=== PATIENT | female | born 2000 | race Two or more races ===

== ENCOUNTER 2024-03-27 19:09 | Emergency (ER) | payer MEDICAID ==
[~2024-03-27] VITALS: Ht 157.5 cm; Wt 78.0 kg
[2024-03-27 20:27] VITALS: BP 135/77; PULSE 114; RESP 18; TEMP 98.9; O2SAT 96
[2024-03-27] MEDS ORDERED: ZOFR4T PO (20:44)
[2024-03-27] MEDS: ONDANSETRON ODT 4 MG TAB PO ONE (20:53)
[2024-03-27 21:17] LABS: Urine Bacteria FEW /hpf (None Seen); Urine Blood Negative /uL (Negative); Urine Clarity Clear (Clear); Urine Color Yellow (Yellow); Urine Mucus FEW (None Seen); Urine Protein, UAD 1+ (Negative); Urine Urobilinogen Normal (Negative); Urine WBC 4 /hpf (0 - 5)
[2024-03-27 21:46] LABS: Amphetamine Screen, Urine Pos (NEGATIVE); Barbiturate Scree,Urine Neg (NEGATIVE); Benzodiazephine Screen, Urine Neg (NEGATIVE); Cannabinoid Screen, Urine Pos (NEGATIVE); Cocaine Screen, Urine Pos (NEGATIVE); Opiate Scree,Urine Neg (NEGATIVE); Phencyclidine Screen, Urine Neg (NEGATIVE)
== END 2024-03-27 21:27 | disposition home or self-care (01) ==
LOC: ER 19:09
DX: F16.10 Hallucinogen abuse, uncomplicated (principal)
CPT/HCPCS: 80307; 81001; 99283; Q0162

== ENCOUNTER 2024-07-21 13:40 | Emergency (ER) | payer MEDICAID ==
[~2024-07-21] VITALS: Ht 157.5 cm; Wt 84.0 kg
[~2024-07-21 13:40] MED LIST: ZOFR4T PO
[2024-07-21 14:03] VITALS: BP 149/87; PULSE 108; RESP 16; TEMP 98.1; O2SAT 96
[2024-07-21] MEDS ORDERED: diphenhdrAMINE HCL 50 MG/1 ML VL IM ONE (14:30)
[2024-07-21] MEDS ORDERED: DIPH25CA66 PO (14:41)
== END 2024-07-21 14:42 | disposition home or self-care (01) ==
LOC: ER 13:44
DX: G25.9 Extrapyramidal and movement disorder, unspecified (principal); F41.9 Anxiety disorder, unspecified; F32.9 Major depressive disorder, single episode, unspecified
CPT/HCPCS: 99282; J1200

== ENCOUNTER 2024-12-09 16:20 | Emergency (ER) | payer MEDICAID ==
[~2024-12-09] VITALS: Ht 175.3 cm; Wt 72.7 kg
[~2024-12-09 16:20] MED LIST changes: +DIPH25CA66 PO
[2024-12-09 17:06] VITALS: BP 116/78; PULSE 102; RESP 16; TEMP 98.7; O2SAT 96
== END 2024-12-09 20:20 | disposition left against medical advice (07) ==
LOC: ER 16:20 → EDBD 16:20 → ER 20:20
DX: H57.10 Ocular pain, unspecified eye (principal); Z53.21 Procedure and treatment not carried out due to patient leaving prior to being seen by health care provider

== ENCOUNTER 2024-12-30 14:42 | Emergency (ER) | payer MEDICAID ==
[~2024-12-30] VITALS: Ht 167.6 cm; Wt 77.2 kg
--- NOTE | 2024-12-30 15:42 | ED.PDOC ---
History of Present Illness HPI Comments 24F presents to the ER via EMS w/ prior Hx associated to the c/c of mental health. Pt reports that she needs to ""sleep" and that she lives at home with her mother and father. Pt notes that she does not have a psychiatrist that follows her and that she is anxious and shaking. Denies chills, fever, N/'V/D, SOB, CP or no other associated symptoms, modifiers, recent injuries or sick contacts at this time. Patient is in the middle of a psychotic event. Patient states she has been placed at mental health facilities on multiple occasions over the past few years. Chief Complaint: Mental Health Time Seen by MD: 15:25 Primary Care Provider: unknown Reviewed Notes: Nurses Notes, Cage Supervisor Notes, Medications, Allergies Allergies: Coded Allergies: NO KNOWN ALLERGIES (Unverified , 03/27/24) Home Meds Active Scripts Diphenhydramine Hcl (Benadryl Allergy) 25 Mg Cap, 50 MG PO BID, #20 CAP Prov:MARIANA STROUD PA 07/21/24 Ondansetron Odt 4MG Tab (ZOFRAN PO) 4 Mg Tb, 4 MG PO Q6HPRN PRN, #10 TAB ODT TAB-DISSOLVE IN MOUTH, THEN SWALLOW Prov:RASHAAD LEE PAC 03/27/24 Information Source: Patient, Emergency Med Personnel Mode of Arrival: Ambulatory Severity: Moderate Timing: Minutes Duration: Since onset, Minutes Prehospital treatment: None Past Medical History PAST MEDICAL HISTORY: Anxiety, Depression Past Medical History (Other): Unknown psychosis. 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 Surgical History: Denies all surgeries ANGLESMITH History: No Pertinent ANGLESMITH History Family History Family History: Reviewed,noncontributory to illness, Unknown Social History Smoker: Non-Smoker Alcohol: Denies ETOH Use Drugs: Denies Drug Use Lives In: Home Constitutional: reports: weakness; denies: chills, diaphoresis, fatigue, fever, malaise, sweats, others EENTM: denies: blurred vision, double vision, ear bleeding, ear discharge, ear drainage, ear pain, ear ringing, eye pain, eye redness, hearing loss, mouth pain, mouth swelling, nasal discharge, nose bleeding, nose congestion, nose pain, photophobia, tearing, throat pain, throat swelling, voice changes, others Respiratory: denies: cough, hemoptysis, orthopnea, SOB at rest, shortness of breath, SOB with excertion, stridor, wheezing, others Cardiovascular: denies: chest pain, dizzy spells, diaphoresis, Dyspnea on exertion, edema, irregular heart beat, left arm pain, lightheadedness, palpitations, PND, syncope, others Gastrointestinal: denies: abdomen distended, abdominal pain, blood streaked bowels, constipated, diarrhea, dysphagia, difficulty swallowing, hematemesis, melena, nausea, poor appetite, poor fluid intake, rectal bleeding, rectal pain, vomiting, others Genitourinary: denies: abnormal vagina bleeding, burning, dyspareunia, dysuria, flank pain, frequency, hematuria, incontinence, pain, , vagina discharge, urgency, others Neurological: denies: dizziness, fainting, headache, left sided numbness, left sided weakness, numbness, paresthesia, pre-existing deficit, right sided numbness, right sided weakness, seizure, speech problems, tingling, tremors, weakness, others Musculoskeletal: denies: back pain, gout, joint pain, joint swelling, muscle pain, muscle stiffness, neck pain, others Integumetry: denies: bruises, change in color, change in hair/nails, dryness, laceration, lesions, lumps, rash, wounds, others Allergic/Immunocompromised: denies: Difficulty Healing, Frequent Infections, Hives, Itching, others Hematologic/Lymphatic: denies: anemia, blood clots, easy bleeding, easy bruising, swollen glands, others Endocrine: denies: excessive hunger, excessive sweating, excessive thirst, excessive urination, flushing, intolerance to cold, intolerance to heat, unexplained weight gain, unexplained weight loss, others Psychiatric: reports: anxiety; denies: bipolar disorder, depression, hopeless, panic disorder, schizophrenia, sleepless, suicidal, others Unable to Obtain due to: Altered Mental Status (Due to psychotic state) All Other Systems: Reviewed and Negative Physical Exam General Appearance: Moderate Distress (Patient was slow in response and shaking at time of evaluation. Patient understood the questions and did respond. Patient stated a history of psychiatric placement.), Normal HEENT: Normal ENT Inspection, Pharynx Normal, TMs Normal Neck: Full Range of Motion, Non-Tender, Normal, Normal Inspection Respiratory: Chest Non-Tender, Lungs Clear, No Accessory Muscle Use, No Respiratory Distress, Normal Breath Sounds Cardiovascular: No Edema, No JVD, No Murmur, No Gallop, Normal Peripheral Pulses, Regular Rate/Rhythm Breast Exam: Deferred Gastrointestinal: No Organomegaly, Non Tender, No Pulsatile Mass, Normal Bowel Sounds, Soft Genitalia: Deferred Pelvic: Deferred Rectal: Deferred Extremities: NOT DONE Musculoskeletal : Apperance: Normal Neurologic: NOT DONE Cerebellar Function: NOT DONE Reflexes: NOT DONE Skin: Dry, Normal Color, Warm Lymphatic: No Adenopathy Was a procedure done? Was a procedure done?: No Differential Dx Considerations may include: Psychosis, bipolar schizophrenic, sepsis, electrolyte abnormality, UTI, drug abuse, alcoholism X-Ray, Labs, Meds, VS Vital Signs Date Time Temp Pulse Resp B/P (MAP) Pulse Ox O2 Delivery O2 Flow Rate FiO2 12/30/24 22:00 98.5 12/30/24 20:55 99.1 12/30/24 19:40 113 15 97 Room Air* 0 21 12/30/24 19:40 98.9 113 15 117/80 (92) 97 98.9 12/30/24 17:00 98.4 125 15 125/84 (98) 95 98.4 12/30/24 17:00 125 15 95 Room Air* 0 21 12/30/24 14:53 99.1 103 18 126/81 (96) 98 99.1 Lab Test 12/30/24 18:10 12/30/24 17:19 Range/Units Urine Color Light-orange Yellow Urine Clarity Turbid H Clear Urine pH 6.0 5.0-9.0 Urine Specific [place] 1.022 1.001-1.035 Urine Protein Trace H Negative Urine Ketones 1+ H Negative Urine Blood Negative Negative /uL Urine Nitrite 2+ H Negative Urine Bilirubin Negative Negative Urine Urobilinogen Normal Negative mg/dL Urine Leukocyte Esterase 3+ Negative /uL Urine RBC 5 0 - 4 /hpf Urine Microscopic WBC 41 H 0-5 /HPF Urine Squamous Epithelial Cells Few <5 /hpf Urine Bacteria None seen None Seen /hpf Urine Mucus Moderate None Seen Urine Glucose Normal Normal mg/dL Urine Test Negative Negative Urine Opiates Screen Neg NEGATIVE Urine Fentanyl Screen Neg NEGATIVE Urine Barbiturates Screen Neg NEGATIVE Urine Phencyclidine Screen Neg NEGATIVE Urine Amphetamines Screen Neg NEGATIVE Urine Benzodiazepines Screen Neg NEGATIVE Urine Cocaine Screen Neg NEGATIVE Urine Cannabinoids Screen Neg NEGATIVE White Blood Count 9.2 4.4-10.8 10^3/uL Red Blood Count 4.46 4.0-5.20 10^6/uL Hemoglobin 13.7 12.2-16.2 g/dL Hematocrit 40.4 36.0-46.0 % Mean Corpuscular Volume 90.5 80.0-100.0 fL Mean Corpuscular Hemoglobin 30.7 28.0-32.0 pg Mean Corpuscular Hemoglobin Concent 33.9 32.0-36.0 g/dL Red Cell Distribution Width 13.4 11.8-14.3 % Platelet Count 233 140-450 10^3/uL Mean Platelet Volume 9.7 6.9-10.8 fL Neutrophils (%) (Auto) 71.7 37.0-80.0 % Lymphocytes (%) (Auto) 20.6 10.0-50.0 % Monocytes (%) (Auto) 6.8 0.0-12.0 % Eosinophils (%) (Auto) 0.6 0.0-7.0 % Basophils (%) (Auto) 0.3 0.0-2.0 % Neutrophils # (Auto) 6.6 1.6-8.6 10 ^3/uL Lymphocytes # (Auto) 1.9 0.4-5.4 10 ^3/uL Monocytes # (Auto) 0.6 0-1.3 10 ^3/uL Eosinophils # (Auto) 0.1 0-0.8 10 ^3/uL Basophils # (Auto) 0 0-0.2 10 ^3/uL Nucleated Red Blood Cells 0.0 % Sodium Level 139 136-145 mmol/L Potassium Level 3.7 3.5-5.1 mmol/L Chloride Level 103 98-107 mmol/L Carbon Dioxide Level 26 20-31 mmol/L Anion Gap 10 5-15 Blood Urea Nitrogen 10 9-23 mg/dL Creatinine 0.78 0.550-1.02 mg/dL Glomerular Filtration Rate Calc 108 >90 mL/min BUN/Creatinine Ratio 12.8 10.0-20.0 Serum Glucose 123 H 74-106 mg/dL Calcium Level 10.7 H 8.7-10.4 mg/dL Lipase 36 12-53 U/L Salicylates Level < 3.0 -30 mg/dL Plasma/Serum Blood Alcohol < 3.0 <10 mg/dL Current Medications Medications (Trade) Dose Ordered Sig/Gerald Route Start Time Stop Time Status Last Admin Lorazepam (Ativan Inj) 1 mg ONCE ONCE IM 12/30/24 15:30 12/30/24 15:31 DC 12/30/24 16:53 Sodium Chloride 2,000 ml @ 1,000 mls/hr Q2H ONCE IV 12/30/24 20:00 12/30/24 21:59 DC 12/30/24 20:56 Nitrofurantoin Macrocrystals (Macrobid) 100 mg ONCE ONCE PO 12/30/24 20:00 12/30/24 20:01 DC 12/30/24 20:55 Acetaminophen (Tylenol Tablet Or Capsule) 1,000 mg ONCE ONCE PO 12/30/24 20:00 12/30/24 20:01 DC 12/30/24 20:55 Alprazolam (Xanax Tablet) 1 mg ONCE ONCE PO 12/30/24 20:30 12/30/24 20:31 DC 12/30/24 20:55 X-Ray, Labs, Meds, VS Comment All studies performed the ED were evaluated by me personally. Serum studies were unremarkable for any acute process. Urinalysis confirmed a large urinary tract infection. Patient was very agitated throughout her stay of the facility. Patient required multiple rounds of Ativan to maintain a safe environment. Patient has been medically cleared for psychiatric evaluation. Patient should be placed in a longer-term facility to manage her medication. Time of 1ST Reevaluation: 01:34 Reevaluation 1ST: Improved Consultation: PCP, Psychiatry Patient Education/Counseling: Diagnosis, Treatment, Prognosis Family Education/Counseling: Diagnosis, Treatment, No Family Present Departure 1 Departure Time of Disposition: 01:34 Impression: Primary Impression: Psychosis Disposition: 30 STILL A PATIENT Condition: Poor Discharged With: Self Critical Care Note Critical Care Time?: No Stability Stability form required: No Heart Score Heart Score: Heart Score Response (Comments) Value History N/A 0 EKG N/A 0 Age N/A 0 Risk Factors N/A 0 Troponin N/A 0 Total 0 I personally scribed for LEANNA LARSEN PAC ([email or web address]) on 12/30/24 at 15:42. Electronically submitted by Michi Astudillo ([email or web address]). LEANNA LARSEN PAC Dec 30, 2024 15:42
[2024-12-30] MEDS: LORazepam 2MG/ML-1ML VIAL IM ONE (16:53)
[2024-12-30 17:00] VITALS: PULSE 125; RESP 15; O2SAT 95
[2024-12-30 18:09] LABS: Basophils # (auto) 0 10 ^3/uL (0-0.2); Basophils % (auto) 0.3 % (0.0-2.0); Eosinophils # (auto) 0.1 10 ^3/uL (0-0.8); Eosinophils % (auto) 0.6 % (0.0-7.0); Hematocrit 40.4 % (36.0-46.0); Hemoglobin 13.7 g/dL (12.2-16.2); Lymphocytes # (auto) 1.9 10 ^3/uL (0.4-5.4); Lymphocytes % (auto) 20.6 % (10.0-50.0); Mean Corpuscular Hemoglobin 30.7 pg (28.0-32.0); Mean Corpuscular Hgb Conc. 33.9 g/dL (32.0-36.0); Mean Corpuscular Volume 90.5 fL (80.0-100.0); Monocytes # (auto) 0.6 10 ^3/uL (0-1.3); Monocytes % (auto) 6.8 % (0.0-12.0); Neutrophils # (auto) 6.6 10 ^3/uL (1.6-8.6); Neutrophils % (auto) 71.7 % (37.0-80.0); Platelet Count (auto) 233 10^3/uL (140-450); Red Blood Cells 4.46 10^6/uL (4.0-5.20); Red Cell Distribution Width 13.4 % (11.8-14.3); White Blood Cell 9.2 10^3/uL (4.4-10.8)
[2024-12-30 18:11] LABS: Urine Bacteria None Seen /hpf (None Seen)
[2024-12-30 18:15] LABS: Anion Gap 10 (5-15); Carbon Dioxide 26 mmol/L (20-31); Chloride 103 mmol/L (98-107); Potassium 3.7 mmol/L (3.5-5.1); Sodium 139 mmol/L (136-145)
[2024-12-30 18:21] LABS: BUN/Creatinine Ratio 12.8 (10.0-20.0); Blood Urea Nitrogen 10 mg/dL (9-23)
[2024-12-30 18:31] LABS: Blood Alcohol < 3.0 mg/dL (<10); Calcium 10.7 mg/dL (8.7-10.4); Glucose 123 mg/dL (74-106)
[2024-12-30 18:37] LABS: Benzodiazephine Screen, Urine Neg (NEGATIVE)
[2024-12-30 18:38] LABS: Cannabinoid Screen, Urine Neg (NEGATIVE)
[2024-12-30 18:39] LABS: Amphetamine Screen, Urine Neg (NEGATIVE); Barbiturate Scree,Urine Neg (NEGATIVE); Cocaine Screen, Urine Neg (NEGATIVE); Opiate Scree,Urine Neg (NEGATIVE); Phencyclidine Screen, Urine Neg (NEGATIVE)
[2024-12-30 18:42] LABS: Urine Blood Negative /uL (Negative); Urine Clarity Turbid (Clear); Urine Color Light-Orange (Yellow); Urine Mucus MODERATE (None Seen); Urine Protein, UAD TRACE (Negative); Urine Specific Gravity 1.022 (1.001-1.035); Urine Squamous Epithelial Cell FEW /hpf (<5); Urine Urobilinogen Normal (Negative); Urine WBC 41 /HPF (0-5)
[2024-12-30 19:40] VITALS: PULSE 113; RESP 15; O2SAT 97
[2024-12-30 19:58] LABS: Lipase 36 U/L (12-53)
[2024-12-30] MEDS: ALPRAZolam 0.5 MG TAB PO ONE (20:55)
[2024-12-30] MEDS: ACETAMINOPHEN 500 MG TAB or CAP PO ONE (20:55)
[2024-12-30] MEDS: NITROFURANTOIN 100 mg CAP PO ONE (20:55)
[2024-12-30] MEDS: SODIUM CHLORIDE 0.9% 2,000 ML IV ONE (20:56)
[2024-12-31] MEDS: ACETAMINOPHEN 325 MG TAB PO ONE (01:50)
[2024-12-31] MEDS: LORazepam 0.5 MG TAB PO ONE (01:51)
[2024-12-31] MEDS: NITROFURANTOIN 100 mg CAP PO ONE (01:52)
--- NOTE | 2024-12-31 09:04 | ED.PDOC ---
History of Present Illness HPI Comments 24 year old female presents to the ED via EMS with a chief complaint of ALOC onset today. Patient was seen at [facility], yesterday, decided to leave. Patient was laying down outside a store, 911 was called by bystanders. Upon ED arrival, patient refused to answer questions. PMHx anxiety, depression. Chief Complaint: Mental Health Time Seen by MD: 08:46 Primary Care Provider: unknown Reviewed Notes: Medications, Allergies Allergies: Coded Allergies: NO KNOWN ALLERGIES (Unverified , 03/27/24) Home Meds Active Scripts Diphenhydramine Hcl (Benadryl Allergy) 25 Mg Cap, 50 MG PO BID, #20 CAP Prov:MARIANA STROUD 07/21/24 Ondansetron Odt 4MG Tab (ZOFRAN PO) 4 Mg Tb, 4 MG PO Q6HPRN PRN, #10 TAB ODT TAB-DISSOLVE IN MOUTH, THEN SWALLOW Prov:RASHAAD LEE 03/27/24 Information Source: Emergency Med Personnel Mode of Arrival: Ambulatory Severity: Moderate Timing: Hours Duration: Since onset Prehospital treatment: None Past Medical History PAST MEDICAL HISTORY: Anxiety, Depression Past Medical History (Other): Unknown psychosis. 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 Surgical History: Denies all surgeries TALENT ACQUISITION PROJECT MANAGER History: No Pertinent TALENT ACQUISITION PROJECT MANAGER History Family History Family History: Reviewed,noncontributory to illness, Unknown Social History Smoker: Non-Smoker Alcohol: Denies ETOH Use Drugs: Denies Drug Use Lives In: Home Unable to Obtain due to: Altered Mental Status Physical Exam General Appearance: Moderate Distress, Normal HEENT: Normal ENT Inspection, Pharynx Normal, TMs Normal Neck: Full Range of Motion, Non-Tender, Normal, Normal Inspection Respiratory: Chest Non-Tender, Lungs Clear, No Accessory Muscle Use, No Respiratory Distress, Normal Breath Sounds Cardiovascular: No Edema, No JVD, No Murmur, No Gallop, Normal Peripheral Pulses, Regular Rate/Rhythm Breast Exam: Deferred Gastrointestinal: No Organomegaly, Non Tender, No Pulsatile Mass, Normal Bowel Sounds, Soft Genitalia: Deferred Pelvic: Deferred Rectal: Deferred Extremities: No calf tenderness, Normal capillary refill, Normal inspection, Normal range of motion, Non-tender, No pedal edema Musculoskeletal : Apperance: Normal Neurologic: Alert, dairy clerk II-XII nml as Tested, No Motor Deficits, Normal Affect, Normal Mood, No Sensory Deficits Cerebellar Function: NOT DONE Reflexes: NOT DONE Skin: Dry, Normal Color, Warm Peripheral Pulses: 3+ Radial (R), 3+ Radial (L) Lymphatic: No Adenopathy Was a procedure done? Was a procedure done?: No Differential Dx Considerations may include: Psychosis Electrolyte imbalance X-Ray, Labs, Meds, VS Vital Signs Date Time Temp Pulse Resp B/P (MAP) Pulse Ox O2 Delivery O2 Flow Rate FiO2 12/31/24 02:50 98.0 12/31/24 01:50 98.1 12/30/24 22:00 98.5 12/30/24 20:55 99.1 12/30/24 19:40 113 15 97 Room Air* 0 21 12/30/24 19:40 98.9 113 15 117/80 (92) 97 98.9 12/30/24 17:00 98.4 125 15 125/84 (98) 95 98.4 12/30/24 17:00 125 15 95 Room Air* 0 21 12/30/24 14:53 99.1 103 18 126/81 (96) 98 99.1 Lab Test 12/30/24 18:10 12/30/24 17:19 Range/Units Urine Color Light-orange Yellow Urine Clarity Turbid H Clear Urine pH 6.0 5.0-9.0 Urine Specific [place] 1.022 1.001-1.035 Urine Protein Trace H Negative Urine Ketones 1+ H Negative Urine Blood Negative Negative /uL Urine Nitrite 2+ H Negative Urine Bilirubin Negative Negative Urine Urobilinogen Normal Negative mg/dL Urine Leukocyte Esterase 3+ Negative /uL Urine RBC 5 0 - 4 /hpf Urine Microscopic WBC 41 H 0-5 /HPF Urine Squamous Epithelial Cells Few <5 /hpf Urine Bacteria None seen None Seen /hpf Urine Mucus Moderate None Seen Urine Glucose Normal Normal mg/dL Urine Test Negative Negative Urine Opiates Screen Neg NEGATIVE Urine Fentanyl Screen Neg NEGATIVE Urine Barbiturates Screen Neg NEGATIVE Urine Phencyclidine Screen Neg NEGATIVE Urine Amphetamines Screen Neg NEGATIVE Urine Benzodiazepines Screen Neg NEGATIVE Urine Cocaine Screen Neg NEGATIVE Urine Cannabinoids Screen Neg NEGATIVE White Blood Count 9.2 4.4-10.8 10^3/uL Red Blood Count 4.46 4.0-5.20 10^6/uL Hemoglobin 13.7 12.2-16.2 g/dL Hematocrit 40.4 36.0-46.0 % Mean Corpuscular Volume 90.5 80.0-100.0 fL Mean Corpuscular Hemoglobin 30.7 28.0-32.0 pg Mean Corpuscular Hemoglobin Concent 33.9 32.0-36.0 g/dL Red Cell Distribution Width 13.4 11.8-14.3 % Platelet Count 233 140-450 10^3/uL Mean Platelet Volume 9.7 6.9-10.8 fL Neutrophils (%) (Auto) 71.7 37.0-80.0 % Lymphocytes (%) (Auto) 20.6 10.0-50.0 % Monocytes (%) (Auto) 6.8 0.0-12.0 % Eosinophils (%) (Auto) 0.6 0.0-7.0 % Basophils (%) (Auto) 0.3 0.0-2.0 % Neutrophils # (Auto) 6.6 1.6-8.6 10 ^3/uL Lymphocytes # (Auto) 1.9 0.4-5.4 10 ^3/uL Monocytes # (Auto) 0.6 0-1.3 10 ^3/uL Eosinophils # (Auto) 0.1 0-0.8 10 ^3/uL Basophils # (Auto) 0 0-0.2 10 ^3/uL Nucleated Red Blood Cells 0.0 % Sodium Level 139 136-145 mmol/L Potassium Level 3.7 3.5-5.1 mmol/L Chloride Level 103 98-107 mmol/L Carbon Dioxide Level 26 20-31 mmol/L Anion Gap 10 5-15 Blood Urea Nitrogen 10 9-23 mg/dL Creatinine 0.78 0.550-1.02 mg/dL Glomerular Filtration Rate Calc 108 >90 mL/min BUN/Creatinine Ratio 12.8 10.0-20.0 Serum Glucose 123 H 74-106 mg/dL Calcium Level 10.7 H 8.7-10.4 mg/dL Lipase 36 12-53 U/L Salicylates Level < 3.0 -30 mg/dL Plasma/Serum Blood Alcohol < 3.0 <10 mg/dL Current Medications Medications (Trade) Dose Ordered Sig/Gerald Route Start Time Stop Time Status Last Admin Lorazepam (Ativan Inj) 1 mg ONCE ONCE IM 12/30/24 15:30 12/30/24 15:31 DC 12/30/24 16:53 Sodium Chloride 2,000 ml @ 1,000 mls/hr Q2H ONCE IV 12/30/24 20:00 12/30/24 21:59 DC 12/30/24 20:56 Nitrofurantoin Macrocrystals (Macrobid) 100 mg ONCE ONCE PO 12/30/24 20:00 12/30/24 20:01 DC 12/30/24 20:55 Acetaminophen (Tylenol Tablet Or Capsule) 1,000 mg ONCE ONCE PO 12/30/24 20:00 12/30/24 20:01 DC 12/30/24 20:55 Alprazolam (Xanax Tablet) 1 mg ONCE ONCE PO 12/30/24 20:30 12/30/24 20:31 DC 12/30/24 20:55 Acetaminophen (Tylenol Tablet) 650 mg ONCE ONCE PO 12/31/24 01:15 12/31/24 01:16 DC 12/31/24 01:50 Lorazepam (Ativan Tablet) 1 mg ONCE ONCE PO 12/31/24 01:15 12/31/24 01:16 DC 12/31/24 01:51 Nitrofurantoin Macrocrystals (Macrobid) 100 mg ONCE ONCE PO 12/31/24 01:30 12/31/24 01:31 DC 12/31/24 01:52 Patient alert. Has been here many times. She keeps leaving. Vitals stable. Labs from yesterday. WBC within normal limits. Hemoglobin within normal limits. Medically cleared. Psychiatric evaluation. Continue monitoring. Time of 1ST Reevaluation: 09:16 Reevaluation 1ST: Unchanged Patient Education/Counseling: Diagnosis, Treatment, Prognosis Family Education/Counseling: No Family Present Departure 1 Departure Time of Disposition: 01:34 Impression: Primary Impression: Psychosis Qualified Codes: F29 - Unspecified psychosis not due to a substance or known physiological condition Additional Impression: Hyperglycemia Disposition: 30 STILL A PATIENT Condition: Poor Discharged With: Self Critical Care Note Critical Care Time?: No Stability Stability form required: No Heart Score Heart Score: Heart Score Response (Comments) Value History N/A 0 EKG N/A 0 Age N/A 0 Risk Factors N/A 0 Troponin N/A 0 Total 0 I personally scribed for FRANKI HUANG MD ([email or web address]) on 12/31/24 at 09:04. Electronically submitted by Cynthia Kelly ([email or web address]). FRANKI HUANG MD Dec 31, 2024 09:04
[2024-12-31 11:30] VITALS: BP 142/96; PULSE 114; RESP 16; TEMP 98; O2SAT 96
--- NOTE | 2024-12-31 12:22 | DVHINCON2 ---
Date of Service if different f: Dec 31, 2024 Time of Service: 11:40 Consultation ([facility]) Consulting Physician: KEATON FARRIS MD Labs Laboratory Tests Test 12/30/24 17:19 12/30/24 18:10 White Blood Count 9.2 10^3/uL (4.4-10.8) Red Blood Count 4.46 10^6/uL (4.0-5.20) Hemoglobin 13.7 g/dL (12.2-16.2) Hematocrit 40.4 % (36.0-46.0) Mean Corpuscular Volume 90.5 fL (80.0-100.0) Mean Corpuscular Hemoglobin 30.7 pg (28.0-32.0) Mean Corpuscular Hemoglobin Concent 33.9 g/dL (32.0-36.0) Red Cell Distribution Width 13.4 % (11.8-14.3) Platelet Count 233 10^3/uL (140-450) Mean Platelet Volume 9.7 fL (6.9-10.8) Neutrophils (%) (Auto) 71.7 % (37.0-80.0) Lymphocytes (%) (Auto) 20.6 % (10.0-50.0) Monocytes (%) (Auto) 6.8 % (0.0-12.0) Eosinophils (%) (Auto) 0.6 % (0.0-7.0) Basophils (%) (Auto) 0.3 % (0.0-2.0) Neutrophils # (Auto) 6.6 10 ^3/uL (1.6-8.6) Lymphocytes # (Auto) 1.9 10 ^3/uL (0.4-5.4) Monocytes # (Auto) 0.6 10 ^3/uL (0-1.3) Eosinophils # (Auto) 0.1 10 ^3/uL (0-0.8) Basophils # (Auto) 0 10 ^3/uL (0-0.2) Nucleated Red Blood Cells 0.0 % Sodium Level 139 mmol/L (136-145) Potassium Level 3.7 mmol/L (3.5-5.1) Chloride Level 103 mmol/L (98-107) Carbon Dioxide Level 26 mmol/L (20-31) Anion Gap 10 (5-15) Blood Urea Nitrogen 10 mg/dL (9-23) Creatinine 0.78 mg/dL (0.550-1.02) Glomerular Filtration Rate Calc 108 mL/min (>90) BUN/Creatinine Ratio 12.8 (10.0-20.0) Serum Glucose 123 mg/dL (74-106) Calcium Level 10.7 mg/dL (8.7-10.4) Lipase 36 U/L (12-53) Salicylates Level < 3.0 mg/dL (-30) Plasma/Serum Blood Alcohol < 3.0 mg/dL (<10) Urine Color Light-orange (Yellow) Urine Clarity Turbid (Clear) Urine pH 6.0 (5.0-9.0) Urine Specific [place] 1.022 (1.001-1.035) Urine Protein Trace (Negative) Urine Ketones 1+ (Negative) Urine Blood Negative /uL (Negative) Urine Nitrite 2+ (Negative) Urine Bilirubin Negative (Negative) Urine Urobilinogen Normal mg/dL (Negative) Urine Leukocyte Esterase 3+ /uL (Negative) Urine RBC 5 /hpf (0 - 4) Urine Microscopic WBC 41 /HPF (0-5) Urine Squamous Epithelial Cells Few /hpf (<5) Urine Bacteria None seen /hpf (None Seen) Urine Mucus Moderate (None Seen) Urine Glucose Normal mg/dL (Normal) Urine Test Negative (Negative) Urine Opiates Screen Neg (NEGATIVE) Urine Fentanyl Screen Neg (NEGATIVE) Urine Barbiturates Screen Neg (NEGATIVE) Urine Phencyclidine Screen Neg (NEGATIVE) Urine Amphetamines Screen Neg (NEGATIVE) Urine Benzodiazepines Screen Neg (NEGATIVE) Urine Cocaine Screen Neg (NEGATIVE) Urine Cannabinoids Screen Neg (NEGATIVE) Appearance: Stated age Psychomotor activity: Agitated, Restless Behavioral: B[place], Uncooperative Eye contact: Appropriate Speech: WNL Affect: Mood Congruent Mood: Anxious, Irritable Thought processes: Flight of ideas, Disorganized Thought content: Paranoid Suicidal ideations: Absent Homicidal ideations: Present Memory intact: Poor Intellect: Average Abstractability: Marginal Concentration: Limited Attention: Limited Judgement: Poor Insight: Poor Vitals Vital Signs Date Time Temp Pulse Resp B/P (MAP) Pulse Ox O2 Delivery O2 Flow Rate FiO2 12/31/24 11:30 98.0 114 16 142/96 (111) 96 98.0 12/30/24 19:40 Room Air* 0 21 Treatment plan discussed: With staff, Family Medication adjusted: Yes Labs ordered: No Psychotherapy provided: No History of Present Illness Reason for Consult : psychiatric evaluation PER ED PHYSICIAN: 24 year old female presents to the ED via EMS with a chief complaint of ALOC onset today. Patient was seen at [facility], yesterday, decided to leave. Patient was laying down outside a store, 911 was called by bystanders. Upon ED arrival, patient refused to answer questions. PMHx anxiety, depression. PSYCHIATRIST HPI: The patient was seen and evaluated at [facility] ED via telepsychiatry platform. 24 yr old female reported she came to the hospital because of fainting. She said she feels high anxiety. She stated she is worried about "being strapped down like an animal." She has difficulty walking properly for the past few weeks. She also has had difficulty sleeping. She wasn't able to explain why she was combative with the nursing staff, only saying that she sometimes has outbursts. She denied having suicidal or homicidal ideation, She denied having auditory or visual hallucinations. She had been in the ED for several hours and had been agitated and combative with ED staff. She had been refusing to answer questions and had tried to leave the ED on more that one occasion. She had been standing in the parking lot on 12/30 with altered mental status so was brought into the ED for evaluation. She is currently in behavioral restraints. She told the nurse, "Nobody is going to hurt her, but somebody will get hurt if you don't remove my restraints." Father was at bedside and provided some collateral information: He reported that she has had some outbursts in which she gets easily angry. He stated he thinks she was on some drugs and alcohol which really affected her mind. He reported she hasn't used street drugs for a couple of week. Past Psychiatric History : Diagnosed with depression and schizophrenia recently. Hospitalized at [facility] for two weeks and started on Zyprexa. She was discharged from hospital on 12/29 and hasn't picked up the medication yet. Past Medical History : currently being treated for UTI Current medications: macrobid. NKDA Substance use: alcohol-she drank a couple shots close to every day. Smoked MJ in the past. Ecstasy use in the past. Past use of cocaine. Doesn't remember past use. Denied use of other substances. Social History : Lives in [place] with parents and grandmother. Works at [employer]. Graduated HS. Never , no children. Diagnosis: UNSPECIFIED PSYCHOTIC DISORDER F29 Formulation: This 24 yr old female appears to suffer from psychosis and may benefit from starting an antipsychotic. She would benefit from inpatient hospitalization and meets criteria for involuntary hold on the basis of danger to others. She is unable to control her outbursts and has attacked the ED staff requiring her to be physically restrained. Plan: 1. Transfer to behavioral health unit when bed available. 2. Legal-initiate involuntary hold for danger to others. Monitor for safety. 3. Medications: Recommend giving Haldol 5mg po/im q8hr prn agitation, Ativan 2mg po/im q8hr prn anxiety, Benadryl 50mg po/im q8hr prn agitation. 4. Case discussed with ED physician, Dr Marcano. 5. Please recontact psychiatry for further follow up or reevaluation. Assessment/Diagnosis/Plan Reviewed: Labs, Medications, Previous Orders KEATON FARRIS MD Dec 31, 2024 11:42
== END 2024-12-31 16:22 | disposition left against medical advice (07) ==
LOC: ER 14:42 → EDBD 14:42 → ER 12-31 16:22
DX: F29 Unspecified psychosis not due to a substance or known physiological condition (principal); R73.9 Hyperglycemia, unspecified; F41.9 Anxiety disorder, unspecified; F32.A Depression, unspecified; F20.9 Schizophrenia, unspecified; Z79.899 Other long term (current) drug therapy
CPT/HCPCS: 36415; 80048; 80307; 80320; 80329; 81001; 81025; 83690; 85025; 96360; 96372; 99285; J2060; J7030